=== PATIENT | female | born 1960 | race Caucasian/White ===

== ENCOUNTER 2017-05-12 21:31 | Inpatient (IN) | payer MEDICARE ==
[~2017-05-12] VITALS: Ht 165.1 cm; Wt 73.5 kg
[~2017-05-12 21:31] MED LIST: BENZONATATE200 MG PO; BREO ELLIPTA1 POW IH; CELEXA20 MG PO; LISINOPRIL10 MG PO; METFORMIN500 MG PO; POTASSIUM GLUC500 MG PO; PREDNISONE20 MG PO; RANITIDINE HCL150 MG PO; SPIRIVA RE2.5 MCG/Ac IH; SYMBICORT 10.10.2 M1 IH; ZITHROMAX TRI-500 M1 PO
[2017-05-12 21:35] VITALS: BP 194/83
[2017-05-12 22:03] LABS: HEMOGLOBIN 14.7 g/dL (12.2-16.2); LYMPH % 14.3 % (10-50.0)
[2017-05-12 22:25] LABS: BUN 11 mg/dL (7-18)
[2017-05-12 22:28] LABS: GFR (ESTIMATED) 64 ML/MIN (59-)
--- NOTE | 2017-05-12 22:43 | Emergency Room Report ---
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 Y Clinical Suspician of Infection? Y Mental Status: 1 - Regular (Normal Baseline) Sepsis Risk:Severe Sepsis Risk Have you (or family members/close friends) recently traveled outside the [place]? N If Yes, where/when: Have you had exposure to infectious disease within the past month? TB? Other? 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 over the last 2 days - pt with hx of copd and has hx of tob use - no hemoptysis or chest pain Cardiac Chest Pain Chest pain indicative of cardiac No Timing/Duration this evening Severity moderate ALLERGIES Coded Allergies: aspirin (I-HIVES 07/25/16) Home Medications Active Scripts FLUTICASONE/VILANTEROL (Breo Ellipta 100-25 Mcg INH) 1 POW IH DAILY #30 POW Prov: 07/26/16 Tiotropium [place] (Spiriva Respimat) 2.5 MCG IH DAILY #1 EACH Prov: 07/26/16 Azithromycin (Zithromax Tri-Luc) 500 MG PO DAILY #3 TAB Prov: 07/26/16 Lisinopril 10 MG PO DAILY #30 TAB Prov: 07/26/16 Prednisone (Prednisone 20MG Tab) 20 MG PO BID #10 TAB Prov: 07/26/16 Benzonatate 200 MG PO TIDP PRN COUGH #30 SGL Prov: 07/26/16 Potassium Gluconate 500 MG PO BID #60 TAB Prov: 07/27/16 Reported Medications Metformin HCL (Metformin) 500 MG PO DAILY CITALOPRAM HYDROBROMIDE (Citalopram HBr) 20 MG PO DAILY Ranitidine Hcl (Ranitidine 150MG) 150 MG PO BID History Medical History General CAD? No Angina: No [place]: No Hypertension? No Hyperlipidemia? No CHF? No DVT? No PE? No COPD? Yes Asthma? No Anemia? No GERD? No Gastric ulcers? No GI Bleed? No Hernia? No Thyroid Problems? No Hypothyroidism? No CVA? No Seizures? No Diabetes? Yes Insulin Dependent: No Insulin Pump: No Home FSBS? No Renal Insuffiency? No End Stage Renal Disease? No UTI? No Stones? No GB Disease: Yes Nephritic Syndrome? No Asplenia? No Hepatitis? No Sickle Cell Disease? No Arthritis? No Migraines? No Cataracts? No Glaucoma? No MRSA? No HIV? No TB? No Anxiety? No Depression? No More? 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 Respiratory see HPI, cough, shortness of breath, wheezing Cardiovascular denies chest pain, denies palpitations, denies syncope Gastrointestinal denies abdominal pain, denies diarrhea, denies vomiting Genitourinary denies: dysuria, frequency, hesitancy, hematuria. Musculoskeletal denies back pain, denies joint pain, denies joint swelling, denies neck pain Skin denies rash Psychiatric/Neurological denies headache, denies seizure Physical Exam Vital Signs Vital Signs Date Time Temp Pulse Resp B/P Pulse O2 O2 Flow FiO2 Ox Delivery Rate 05/12 2245 101.7 96 25 168/75 97 3 05/12 2243 28 92 05/12 2135 101.7 109 28 194/83 92 - WBC >12,000 or <4,000 or 10% bands? 2 or more SIRS Criteria Met? B/P:168/75 MAP:120 Creatinine >2.0? UA output<0.5ml/kg/hr for 2 hrs? Platelet count >100,000? Lactate >2.0mmol/1? INR >1.2 or PTT > than 60 sec? Evidence of Organ Dysfunction? Provider documented clinical suspician of infection? Y Sepsis Criteria Count: 2 Sepsis Risk: Severe Sepsis Risk General Appearance no apparent distress Eye Exam - bilateral eye PERRL, bilateral eye EOMI Ear, Nose, Throat normal ENT inspection Neck supple Respiratory Status No: respiratory distress. Lung Sounds bilateral: rhonchi, wheezing. 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 No Results/Orders Laboratory Tests 05/12/172229: Influenza Type A Ag NOT DETECTED, Influenza Type B Ag NOT DETECTED 05/12/172149: Lactic Acid 1.9 05/12/172149: Sodium 141, Potassium 2.8 *L, Chloride 98, Carbon Dioxide 34 H, BUN 11, Creatinine 0.9, Estimated Creat Clear 72, Estimated GFR (MDRD) 64, Glucose 108 H, Calcium 8.7, Total Bilirubin 0.6, AST 13 L, ALT 22, Alkaline Phosphatase 134 H, Creatine Kinase 25 L, CK-MB (CK-2) Rel Index 2.0, CK and CKMB Interp < 0.5, Troponin I < 0.02, Total Protein 7.8, Albumin 3.3 L, Globulin 4.5 H, Albumin/ Globulin Ratio 0.7 L, WBC 13.9 H, RBC 5.12, Hgb 14.7, Hct 45.1, MCV 88.1, RDW 14.2, Plt Count 464 H, MPV 7.7, Gran % 76.6, Gran # 10.7 H, Lymphocytes % 14.3 , Monocytes % 7.5, Eosinophils % 0.6, Basophils % 1.0, Lymphocytes # 2.0, Monocytes # 1.1 H, Eosinophils # 0.1, Basophils # 0.1, PUBS MCHC 32.5, MCH 28.7 Current Medication Orders Sig/Enrique Start time Last Medication Dose Route Stop Time Status Admin Sodium Chloride 100 ML .STK-MED ONE 05/12 2305 DC IV Ceftriaxone Sodium 0 .STK-MED ONE 05/12 2304 DC IV Albuterol/Ipratropium 0 .STK-MED ONE 05/12 2243 DC INH Acetaminophen 0 .STK-MED ONE 05/12 2223 DC PO Albuterol/Ipratropium 3 ML ONCE ONE 05/125 DC 05/12 INH 05/12 221 2246 Methylprednisolone 125 MG ONCE ONE 05/125 DC 05/12 Sodium Succinate IV 05/12 221 2223 Methylprednisolone 0 .STK-MED ONE 05/12 2212 DC Sodium Succinate .ROUTE Sodium Chloride 1,000 ML .STK-MED ONE 05/12 2206 DC IV Acetaminophen 1,000 MG ONCE ONE 05/12 2200 DC 05/12 PO 05/12 2201 2223 Sodium Chloride 1,000 ML .Q1H1M 05/12 220 DC 05/12 IV 05/12 2300 2224 Sodium Chloride 10 ML PRN PRN 05/12 2200 AC IV 05/13 215 Orders Procedure Date/time Status Decision to admit 05/12 225 Active RT REQUEST DUONEB 05/12 2210 Active URINALYSIS/COMPLETE 05/12 2210 Active ELECTROCARDIOGRAM REQUEST 05/12 2155 Active CHEST-PORTABLE 05/12 2155 Active CULTURE, BLOOD 05/12 2155 Active LACTIC ACID 05/12 2155 Complete INFLUENZA A&B ANTIGENS 05/12 2155 Complete CBC WITH AUTO DIFF 05/12 2155 Complete CARDIAC ENZYMES 05/12 2155 Complete CHEM 12 PROFILE 05/12 2155 Complete CM/EKG 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 ST/Twave chgs XRAY/CT/US XRAY/CT/US XRAY chest XR interpretation by reviewed by me Xray Results abnormal (copd) Departure Departure Time of Disposition 2250 Disposition Still a Patient Clinical Impression Primary Impression: COPD (chronic obstructive pulmonary disease) with acute bronchitis Secondary Impressions: Hypokalemia Condition STABLE Referrals Jacquelyn Lindsey MD discussed with dr lindsey ED Critical Care Critical Care No at 2303
--- NOTE | 2017-05-12 22:43 | Emergency Room Report ---
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 Y Clinical Suspician of Infection? Y Mental Status: 1 - Regular (Normal Baseline) Sepsis Risk:Severe Sepsis Risk Have you (or family members/close friends) recently traveled outside the [place]? N If Yes, where/when: Have you had exposure to infectious disease within the past month? TB? Other? 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 - pt with hx of copd and has hx of tob use - no hemoptysis or chest pain Cardiac Chest Pain Chest pain indicative of cardiac No Timing/Duration this evening Severity moderate ALLERGIES Coded Allergies: aspirin (I-HIVES 07/25/16) Home Medications Active Scripts FLUTICASONE/VILANTEROL (Breo Ellipta 100-25 Mcg INH) 1 POW IH DAILY #30 POW Prov: 07/26/16 Tiotropium [place] (Spiriva Respimat) 2.5 MCG IH DAILY #1 EACH Prov: 07/26/16 Azithromycin (Zithromax Tri-Luc) 500 MG PO DAILY #3 TAB Prov: 07/26/16 Lisinopril 10 MG PO DAILY #30 TAB Prov: 07/26/16 Prednisone (Prednisone 20MG Tab) 20 MG PO BID #10 TAB Prov: 07/26/16 Benzonatate 200 MG PO TIDP PRN COUGH #30 SGL Prov: 07/26/16 Potassium Gluconate 500 MG PO BID #60 TAB Prov: 07/27/16 Reported Medications Metformin HCL (Metformin) 500 MG PO DAILY CITALOPRAM HYDROBROMIDE (Citalopram HBr) 20 MG PO DAILY Ranitidine Hcl (Ranitidine 150MG) 150 MG PO BID History Medical History General CAD? No Angina: No [place]: No Hypertension? No Hyperlipidemia? No CHF? No DVT? No PE? No COPD? Yes Asthma? No Anemia? No GERD? No Gastric ulcers? No GI Bleed? No Hernia? No Thyroid Problems? No Hypothyroidism? No CVA? No Seizures? No Diabetes? Yes Insulin Dependent: No Insulin Pump: No Home FSBS? No Renal Insuffiency? No End Stage Renal Disease? No UTI? No Stones? No GB Disease: Yes Nephritic Syndrome? No Asplenia? No Hepatitis? No Sickle Cell Disease? No Arthritis? No Migraines? No Cataracts? No Glaucoma? No MRSA? No HIV? No TB? No Anxiety? No Depression? No More? 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 Respiratory see HPI, cough, shortness of breath, wheezing Cardiovascular denies chest pain, denies palpitations, denies syncope Gastrointestinal denies abdominal pain, denies diarrhea, denies vomiting Genitourinary denies: dysuria, frequency, hesitancy, hematuria. Musculoskeletal denies back pain, denies joint pain, denies joint swelling, denies neck pain Skin denies rash Psychiatric/Neurological denies headache, denies seizure Physical Exam Vital Signs Vital Signs Date Time Temp Pulse Resp B/P Pulse O2 O2 Flow FiO2 Ox Delivery Rate 05/12 2245 101.7 96 25 168/75 97 3 05/12 2243 28 92 05/12 2135 101.7 109 28 194/83 92 - WBC >12,000 or <4,000 or 10% bands? 2 or more SIRS Criteria Met? B/P:168/75 MAP:120 Creatinine >2.0? UA output<0.5ml/kg/hr for 2 hrs? Platelet count >100,000? Lactate >2.0mmol/1? INR >1.2 or PTT > than 60 sec? Evidence of Organ Dysfunction? Provider documented clinical suspician of infection? Y Sepsis Criteria Count: 2 Sepsis Risk: Severe Sepsis Risk General Appearance no apparent distress Eye Exam - bilateral eye PERRL, bilateral eye EOMI Ear, Nose, Throat normal ENT inspection Neck supple Respiratory Status No: respiratory distress. Lung Sounds bilateral: rhonchi, wheezing. 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 No Results/Orders Laboratory Tests 05/12/172229: Influenza Type A Ag NOT DETECTED, Influenza Type B Ag NOT DETECTED 05/12/172149: Lactic Acid 1.9 05/12/172149: Sodium 141, Potassium 2.8 *L, Chloride 98, Carbon Dioxide 34 H, BUN 11, Creatinine 0.9, Estimated Creat Clear 72, Estimated GFR (MDRD) 64, Glucose 108 H, Calcium 8.7, Total Bilirubin 0.6, AST 13 L, ALT 22, Alkaline Phosphatase 134 H, Creatine Kinase 25 L, CK-MB (CK-2) Rel Index 2.0, CK and CKMB Interp < 0.5, Troponin I < 0.02, Total Protein 7.8, Albumin 3.3 L, Globulin 4.5 H, Albumin/ Globulin Ratio 0.7 L, WBC 13.9 H, RBC 5.12, Hgb 14.7, Hct 45.1, MCV 88.1, RDW 14.2, Plt Count 464 H, MPV 7.7, Gran % 76.6, Gran # 10.7 H, Lymphocytes % 14.3 , Monocytes % 7.5, Eosinophils % 0.6, Basophils % 1.0, Lymphocytes # 2.0, Monocytes # 1.1 H, Eosinophils # 0.1, Basophils # 0.1, PUBS MCHC 32.5, MCH 28.7 Current Medication Orders Sig/Enrique Start time Last Medication Dose Route Stop Time Status Admin Sodium Chloride 100 ML .STK-MED ONE 05/12 2305 DC IV Ceftriaxone Sodium 0 .STK-MED ONE 05/12 2304 DC IV Albuterol/Ipratropium 0 .STK-MED ONE 05/12 2243 DC INH Acetaminophen 0 .STK-MED ONE 05/12 2223 DC PO Albuterol/Ipratropium 3 ML ONCE ONE 05/125 DC 05/12 INH 05/12 221 2246 Methylprednisolone 125 MG ONCE ONE 05/125 DC 05/12 Sodium Succinate IV 05/12 221 2223 Methylprednisolone 0 .STK-MED ONE 05/12 2212 DC Sodium Succinate .ROUTE Sodium Chloride 1,000 ML .STK-MED ONE 05/12 2206 DC IV Acetaminophen 1,000 MG ONCE ONE 05/12 2200 DC 05/12 PO 05/12 2201 2223 Sodium Chloride 1,000 ML .Q1H1M 05/12 220 DC 05/12 IV 05/12 2300 2224 Sodium Chloride 10 ML PRN PRN 05/12 2200 AC IV 05/13 215 Orders Procedure Date/time Status Decision to admit 05/12 225 Active RT REQUEST DUONEB 05/12 2210 Active URINALYSIS/COMPLETE 05/12 2210 Active ELECTROCARDIOGRAM REQUEST 05/12 2155 Active CHEST-PORTABLE 05/12 2155 Active CULTURE, BLOOD 05/12 2155 Active LACTIC ACID 05/12 2155 Complete INFLUENZA A&B ANTIGENS 05/12 2155 Complete CBC WITH AUTO DIFF 05/12 2155 Complete CARDIAC ENZYMES 05/12 2155 Complete CHEM 12 PROFILE 05/12 2155 Complete 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 ST/Twave chgs XRAY/CT/US XRAY/CT/US XRAY chest XR interpretation by reviewed by me Xray Results abnormal (copd) Departure Departure Time of Disposition 2250 Disposition Still a Patient Clinical Impression Primary Impression: COPD (chronic obstructive pulmonary disease) with acute bronchitis Secondary Impressions: Hypokalemia Condition STABLE Referrals Jacquelyn Lindsey MD discussed with dr lindsey ED Critical Care Critical Care No at 2307
[2017-05-13] VITALS (8 sets, daily range): BP systolic 124–161; BP diastolic 61–89
[2017-05-13] MEDS ORDERED: DULERA1 AR1 IH (00:43)
[2017-05-13] MEDS ORDERED: SYMBICORT1 AE1 IH (00:44)
[2017-05-13] MEDS ORDERED: ADVAIR DISK28 PUFFS IN (00:44)
[2017-05-13 00:45] LABS: URINE BILIRUBIN - DIPSTICK NEGATIVE (NEG); URINE BLOOD NEGATIVE (NEG)
--- NOTE | 2017-05-13 05:29 | RADIOLOGY REPORT PS360 ---
CHEST-PORTABLE HISTORY: Shortness of air with cough, current smoker COUGH X 3 WEEKS WITH FEVER ORDERING PHYSICIAN: Jacquelyn Montaño MD PATIENT AGE: 57 years COMPARISON: 07/25/2016 FINDINGS: There is mild cardiomegaly without failure. There is coarsening of the bronchovascular markings with reticular nodular opacities bilaterally. No obvious effusions. No acute bony anomalies. IMPRESSION: Cardiomegaly. Coarsened bronchovascular markings with reticular nodular opacities which may be seen with acute interstitial pneumonitis or progressive interstitial lung disease. High-resolution CT suggested for further evaluation
[2017-05-13 06:47] LABS: HEMOGLOBIN 13.6 g/dL (12.2-16.2); LYMPH % 7.2 % (10-50.0)
--- NOTE | 2017-05-13 07:24 | PHARMACY CLINIC NOTE ---
Patient Demographics Patient Demographics Admission date: 05/13/17 Date: 05/13/17 Time: 07 Allergies Coded Allergies: aspirin (I-HIVES 07/25/16) HEIGHT- FT: 5 IN: 5.00 K.483 VTE General Information Labs: Laboratory Tests 05/13 05/12 0630 2150 Hematology Hgb (12.2 - 16.2 g/dL) 13.6 14.7 Hct (37.0 - 47.0 %) 41.5 45.1 Plt Count (142 - 424 K/mm3) 440 H 464 H Disclaimer The following section includes nursing documentation that has been pulled in for pharmacy review. Patient's VTE score: 4 Patient's VTE Risk: LOW RISK Clinical trial participant? No VTE prophylaxis [id number] VTE prophylaxis ordered? Yes Type of prophylaxis/treatment: SHAKIRA at 0724
[2017-05-13] MEDS ORDERED: METFORMIN 500M500 M1 PO ×2 (08:37→08:41)
--- NOTE | 2017-05-13 08:51 | HISTORY AND PHYSICAL REPORT ---
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 She was also having diarrhea and vomiting. She describes back and neck pain due to the cough. Her brother has also been sick with a cough. She received solu medrol, duoneb Tx and IV rocephin in the ER. She was then admitted for further evaluation and TX. This AM she states that her breathing is better but the cough is the same. Her neck and back are hurting from the cough. She did eat some breakfast which she states is the first she has had to eat in a few days. She has not had any vomiting or diarrhea since admission. She denies abdominal pain. Patient does not have a physician. She states she gets her meds/inhalers from friends. She travels back and forth to [place] to care for different family members. Past Medical History: Medical History: CAD? No Angina: No [place]: No Hypertension? No Hyperlipidemia? No CHF? No DVT? No PE? No COPD? Yes Asthma? No Anemia? No GERD? Yes Gastric ulcers? No GI Bleed? No Hernia? No Thyroid Problems? No Hypothyroidism? No CVA? No Seizures? No Diabetes? Yes Insulin Dependent: No Insulin Pump: No Home FSBS? No Renal Insuffiency? No UTI? No Stones? No GB Disease: Yes Nephritic Syndrome? No Asplenia? No Hepatitis? No Sickle Cell Disease? No Arthritis? No Migraines? No Cataracts? No Glaucoma? No MRSA? No HIV? No TB? No Anxiety? No Depression? No More? Yes Additional hx: IBS Tobacco use disorder Surgical history: Previous Surgery?Y MALORIE CHOLECYSTECTOMY Medications: Active Scripts FLUTICASONE/VILANTEROL (Breo Ellipta 100-25 Mcg INH) 1 POW IH DAILY #30 POW Prov: 07/26/16 Tiotropium [place] (Spiriva Respimat) 2.5 MCG IH DAILY #1 EACH Prov: 07/26/16 Discontinued Scripts Potassium Gluconate 500 MG PO BID #60 TAB Prov: 07/27/16 DC: 05/13/17 0841 Reported Medications Metformin HCl (Metformin) 500 MG PO BID MOMETASONE/FORMOTEROL (Dulera 200 Mcg/5 Mcg Inhaler) 2 PUFFS IH BID FLUTICASONE/SALMETEROL (Advair 500-50 Diskus) 1 PUFF IN BID BUDESONIDE/FORMOTEROL FUMARATE (Symbicort 160-4.5 Mcg Inhaler) 1 PUFF IH BID Allergies: Coded Allergies: aspirin (I-HIVES 07/25/16) Family History: Family history: Postive for: CAD, DM, HTN, cancer. Social History: Smoking Hx Tobacco: Yes Smoker: Current Every Day Smoker Type: Cigarettes Packs/day: < 1 Pack Are you exposed to second hand Yes Alcohol: Alcohol: No Hx of Drug Use: Drug Use? No Review of Systems: Cardiovascular No: chest pain, edema, palpitations. Respiratory Positive for: shortness of air, non-productive, pneumonia, wheezing. GI Positive for: GERD, diarrhea, nausea, vomitting. No: abdominal pain, hematemeis , hematochezia, melena. (female) No: hematuria. Neurological Positive for: light headed. No: dizziness, headache, seizure, syncope. Musculoskeletal Positive for: joint pain. No: extremity pain. Physical Exam: Vital signs: 1ST Vital Signs Result Date Time Pulse Ox 92 05/12 2135 B/P 194/83 05/12 2135 Temp 101.7 05/12 2135 Pulse 109 05/12 2135 Resp 28 05/12 2135 O2 Flow Rate 3 05/12 2245 O2 Delivery OXYGEN 05/12 2321 Exam: General appearance: alert, no acute distress, sitting on bedside and has completed her breakfast Eyes: anicteric, pupils reactive to light Neck: no carotid bruit, carotid bruit (absent bilaterally), lymphadenopathy ( absent), thyroid (normal) Cardiovascular: regular rate & rhythm, no peripheral edema Respiratory: chest non-tender, few bibasilar crackles with wheezing in right base; crackles anteriorly in right upper lobe ABD: non-distended, soft, tender in epigastrium and left upper quad Extremities: no peripheral edema Musculoskeletal: kyphosis present Neuro: alert, oriented, speech clear Lab data: Labs: Laboratory Tests 05/13/17 0630: Sodium 143, Potassium 3.4 L, Chloride 103, Carbon Dioxide 31, BUN 10, Creatinine 0.7, Estimated Creat Clear 100, Estimated GFR (MDRD) 86, Glucose 213 H, Calcium 8.2 L, WBC 13.4 H, RBC 4.70, Hgb 13.6, Hct 41.5, MCV 88.3, RDW 14.2 , Plt Count 440 H, MPV 7.6, Gran % 89.1 H, Gran # 12.0 H, Lymphocytes % 7.2 L, Monocytes % 3.4, Eosinophils % 0.1, Basophils % 0.2, Lymphocytes # 1.0, Monocytes # 0.5, Eosinophils # 0.0, Basophils # 0.0, PUBS MCHC 32.9, MCH 29.0 05/13/17 0609: POC Glucose 219 H 05/12/17 2350: Urine Color YELLOW, Urine Appearance CLEAR, Urine pH 6.0, Ur Specific [place] 1.020, Urine Protein NEGATIVE, Urine Ketones NEGATIVE, Urine Blood NEGATIVE, Urine Nitrate NEGATIVE, Urine Bilirubin NEGATIVE, Urine Urobilinogen 0.2, Ur Leukocyte Esterase TRACE H, Urine RBC OCC, Urine WBC 3-5, Ur Squamous Epith Cells 5-10, Urine Glucose NEGATIVE 05/12/170: Influenza Type A Ag NOT DETECTED, Influenza Type B Ag NOT DETECTED 05/12/172149: Lactic Acid 1.9 05/12/172149: Sodium 141, Potassium 2.8 *L, Chloride 98, Carbon Dioxide 34 H, BUN 11, Creatinine 0.9, Estimated Creat Clear 72, Estimated GFR (MDRD) 64, Glucose 108 H, Calcium 8.7, Total Bilirubin 0.6, AST 13 L, ALT 22, Alkaline Phosphatase 134 H, Creatine Kinase 25 L, CK-MB (CK-2) Rel Index 2.0, CK and CKMB Interp < 0.5, Troponin I < 0.02, Total Protein 7.8, Albumin 3.3 L, Globulin 4.5 H, Albumin/ Globulin Ratio 0.7 L, WBC 13.9 H, RBC 5.12, Hgb 14.7, Hct 45.1, MCV 88.1, RDW 14.2, Plt Count 464 H, MPV 7.7, Gran % 76.6, Gran # 10.7 H, Lymphocytes % 14.3 , Monocytes % 7.5, Eosinophils % 0.6, Basophils % 1.0, Lymphocytes # 2.0, Monocytes # 1.1 H, Eosinophils # 0.1, Basophils # 0.1, PUBS MCHC 32.5, MCH 28.7 Microbiology 05/12 2150 BLOOD: Anaerobic Blood Culture - RECD 05/12 2150 BLOOD: Aerobic Blood Culture - RECD 05/12 2150 BLOOD: Anaerobic Blood Culture - RECD 05/12 2150 BLOOD: Aerobic Blood Culture - RECD Radiology results: Results: 05/12/17 CXR IMPRESSION: Cardiomegaly. Coarsened bronchovascular markings with reticular nodular opacities which may be seen with acute interstitial pneumonitis or progressive interstitial lung disease. High-resolution CT suggested for further evaluation Diagnosis(es): 1. Hypokalemia Status: Acute 2. COPD exacerbation Status: Acute 3. Type 2 diabetes mellitus Status: Chronic 4. Depression Status: Chronic 5. COPD (chronic obstructive pulmonary disease) with acute bronchitis Plan: ABX, Duoneb, IVF, and Chest CT at 0850
[2017-05-13 10:43] LABS: NEUTROPHILS 87 % (42-76)
--- NOTE | 2017-05-13 13:48 | RADIOLOGY REPORT PS360 ---
CT CHEST W/O CONTRAST HISTORY: HIGH RESOLUTION FOR INTERSTITIAL PNEUMONITS,OR PROGRESSING ORDERING PHYSICIAN: Jacquelyn Montaño MD PATIENT AGE: 57 years TECHNIQUE: Helical acquisition obtained without contrast.. Axial, sagittal, and coronal reformatted images are generated and reviewed. High-resolution axial images are also performed COMPARISON: Chest radiograph of 05/12/2017 FINDINGS: There are scattered small lymph nodes within the mediastinum measuring up to 1.8 x 1.5 cm. Calcified nodes are present in the subcarinal area. Small bilateral hilar nodes are present. Heart size is normal. No obvious pericardial effusion. There is a somewhat diffuse reticular pattern with tiny nodular opacities in both upper lobes. There is a 9 x 7 mm lobulated nodule in the superior segment of the right lower lobe medially. This does appear to contain some central calcification probably related to granuloma. Calcification not well delineated on the axial images but is noted on the reformatted coronal and sagittal images. There is mild diffuse bronchial thickening. No effusions are evident. No lobar consolidation or collapse. Upper abdominal images are unremarkable. No evidence of aortic aneurysm IMPRESSION: 1. There is a mild diffuse reticular nodular pattern in the upper lobes probably related to inflammatory/infectious. Bilateral pneumonia could cause this appearance. 2. Old granulomatous disease.
--- NOTE | 2017-05-13 14:14 | RADIOLOGY REPORT PS360 ---
THORACIC SPINE AP LAT-2VIEW CLINICAL INDICATION: Thoracic pain Pain ORDERING PHYSICIAN: Jacquelyn Montaño MD PATIENT AGE: 57 years COMPARISON: None FINDINGS: Normal alignment. No fracture or dislocation. There is mild multilevel degenerative disc disease involving the mid thoracic spine with decrease in the disc space and osteophyte formation. There is slight decrease in height anteriorly involving T6, T7, and T8 which is likely developmental. No destructive process. 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
--- NOTE | 2017-05-13 14:15 | RADIOLOGY REPORT PS360 ---
EXAM: LUMBAR SPINE-2 TO 3 VIEWS HISTORY: Pain COMPARISON: None FINDINGS: Normal alignment. No fracture or dislocation. No lytic or blastic change. Small osteophytes are present superiorly at L5 L4 and L3. Mild facet arthritic changes are present at L5-S1. IMPRESSION: Mild spondylosis of the lumbar spine with no acute finding
[2017-05-14] VITALS (8 sets, daily range): BP systolic 103–164; BP diastolic 77–89
[2017-05-14 06:59] LABS: HEMOGLOBIN 13.2 g/dL (12.2-16.2); LYMPH # 1.1 K/mm3 (0.7-4.5); LYMPH % 8.3 % (10-50.0)
--- NOTE | 2017-05-14 08:00 | ACUTE CARE PROGRESS NOTE (QUA) ---
Progress Notes Subjective Date 05/14/17 Time 0750 Note States she coughs and sleeps; Is more SOB with more cough this AM. No sputum production. Asks for HH inhalers + nebs. Is eating without problems; no further vomiting or diarrhea; has been up to the bathroom. No sputum collection as yet. continues to complain of neck pain. Objective Findings Laboratory Tests 05/14/17 0630: Sodium 143, Potassium 4.0, Chloride 105, Carbon Dioxide 31, BUN 17, Creatinine 0.7, Estimated Creat Clear 100, Estimated GFR (MDRD) 86, Glucose 179 H, Calcium 8.6, WBC 13.7 H, RBC 4.42, Hgb 13.2, Hct 39.6, MCV 89.5, RDW 14.3, Plt Count 479 H, MPV 7.8, Gran % 88.2 H, Gran # 12.1 H, Lymphocytes % 8.3 L, Monocytes % 3.1, Eosinophils % 0.2, Basophils % 0.2, Lymphocytes # 1.1, Monocytes # 0.4, Eosinophils # 0.0, Basophils # 0.0, PUBS MCHC 33.5, MCH 29.9 05/14/17 0602: POC Glucose 149 H 05/13/17 1957: POC Glucose 155 H 05/13/17 1612: POC Glucose 133 H 05/13/17 1115: POC Glucose 148 H Vital Signs Date Time Temp Pulse Resp B/P Pulse O2 O2 Flow FiO2 Ox Delivery Rate 05/14 0635 2 05/14 0552 2 05/14 0540 2 05/14 0540 98 OXYGEN 2 05/14 0453 2 05/14 0358 2 05/14 0358 97.7 68 24 137/79 98 OXYGEN 2 05/14 0253 2 05/14 0202 2 05/14 0057 2 05/13 2351 2 05/13 2351 98.5 74 20 152/87 99 OXYGEN 2 05/13 2331 2 05/13 2331 86 ROOM AIR 05/13 2308 2 05/13 2147 2 05/13 2105 2 05/13 2020 98.4 76 22 138/61 96 2 05/13 1950 2 05/13 1950 98.4 76 22 138/61 96 OXYGEN 2 05/13 1801 2 05/13 1801 95 OXYGEN 2 05/13 1748 2 05/13 1630 98.4 80 20 124/78 95 OXYGEN 05/13 1506 2 05/13 1300 2 05/13 1129 2 05/13 0914 2 05/13 0832 98.1 75 18 132/77 9 2 Current Medications Ibuprofen 0 .STK-MED ONE PO (DCr) Ibuprofen 800 MG Q8HP PRN PO Ibuprofen 0 .STK-MED ONE PO (DCr) Azithromycin 500 MG 2100 IV Sodium Chloride 250 ML Insulin Human [rDNA origin] 0 .STK-MED ONE SC (DC) Acetaminophen 0 .STK-MED ONE PO (DC) Potassium Chloride 20 MEQ BID PO Ceftriaxone Sodium 1 GM DAILY IV Sodium Chloride 50 ML Sodium Chloride 10 ML PRN PRN IV Diagnostic Test (Pha) 1 EACH W/MEALS&HS FS Insulin Human [rDNA origin] SEE ADMIN CRITERIA FOR LOW INTENSITY SS W/MEALS&HS SC Methylprednisolone Sodium Succinate 60 MG Q8 IV Albuterol 2.5 MG Q6H6 INH Acetaminophen 650 MG Q4HP PRN PO Nicotine 21 MG DAILYP PRN TD Ondansetron HCl 4 MG Q6HP PRN IV Sodium Chloride 1,000 ML .[id number] IV Sodium Chloride 10 ML PRN PRN IV (DC) 05/13 1500 05/13 2300 05/14 0700 Intake Total 360 745 Output Total Balance 360 745 Intake, IV 745 Intake, Oral 360 Last VS-Temp:97.7 B/P:137/79 Pulse:68 Resp:24 SaO2:98 OXYGEN Last weight lbs:162 oz:0 K.483 Method:Floor Scales 05/13/17 CT of lungs IMPRESSION: 1. There is a mild diffuse reticular nodular pattern in the upper lobes probably related to inflammatory/infectious. Bilateral pneumonia could cause this appearance. 2. Old granulomatous disease. 05/13/17 X-ray of lumbar spine IMPRESSION: Mild spondylosis of the lumbar spine with no acute finding 05/13/17 X-ray of thoracic spine IMPRESSION: Spondylosis of the thoracic spine with mild degenerative disc disease and osteophytes of the mid thoracic spine Exam General appearance: alert, no acute distress, awakened for exam Cardiovascular: regular rate & rhythm Respiratory: bilateral wheezing throughout ABD: soft, no tenderness, no guarding, bowel sounds present Extremities: no peripheral edema, SHAKIRA hose on Assessment/Plan Problem List 1. Hypokalemia Status: Acute 2. COPD exacerbation Status: Acute 3. Type 2 diabetes mellitus Status: Chronic 4. Depression Status: Chronic 5. COPD (chronic obstructive pulmonary disease) with acute bronchitis 6. Pneumonia Patient condition no improvement Plan: extra dose of steriod this AM; consider change of ABX; add prn duonebs and cough med. This inpt stay is expected to cross 2 MNs from start of care Yes at 4109
[2017-05-15 04:11] VITALS: BP 163/84
[2017-05-15 07:59] VITALS: BP 154/75
[2017-05-15 08:00] VITALS: BP 154/75
--- NOTE | 2017-05-15 08:20 | ACUTE CARE PROGRESS NOTE (QUA) ---
See Addendum Progress Notes Subjective Date 05/15/17 Time 0755 Note Pt resting quietly in chair, has already had breakfast and tolerated well. She continues with non-productive cough which causes abdominal and back pain. Otherwise, she is "feeling almost good enough to go home". She reports minimal relief with prn cough meds. She is up and about ad amarjit, voiding without difficulty, BM x 1 overnight. Objective Findings Last VS-Temp:97.8 B/P:154/75 Pulse:77 Resp:18 SaO2:95 OXYGEN Last weight lbs:162 oz:0 K.483 Method:Floor Scales 05/12/17 Blood cultures: Preliminary: no growth. Exam General appearance: alert, awake, no acute distress Cardiovascular: regular rate & rhythm, normal peripheral pulses Respiratory: wheezes throughout, frequent dry cough ABD: non-distended, no rebound, soft, no tenderness, no guarding, no organomegaly, no palpable mass, bowel sounds present Extremities: moves all, no peripheral edema, warm, no calf tenderness, bilateral SHAKIRA hose in place Neuro: alert, oriented, speech clear, no focal deficit Reviewed: medications, vital signs, lab results, radiology report, nursing notes Assessment/Plan Problem List 1. Hypokalemia Status: Acute 2. COPD exacerbation Status: Acute 3. Type 2 diabetes mellitus Status: Chronic 4. Depression Status: Chronic 5. COPD (chronic obstructive pulmonary disease) with acute bronchitis 6. Pneumonia Patient condition Stable Plan: further per Dr. Montaño This inpt stay is expected to cross 2 MNs from start of care Yes at 0820 at 0913
[2017-05-15 11:41] VITALS: BP 169/99
[2017-05-15 15:46] VITALS: BP 118/88
[2017-05-15] MEDS ORDERED: ADVAIR DISK28 PUFFS IN (17:48)
[2017-05-15] MEDS ORDERED: METFORMIN 500M500 M1 PO (17:48)
[2017-05-15] MEDS ORDERED: SPIRIVA RE2.5 MCG/Ac IH (17:50)
[2017-05-15] MEDS ORDERED: HYCODAN 5MG. TAB5 MG PO (17:51)
[2017-05-15] MEDS ORDERED: MUCINEX ER600 MG PO (17:52)
[2017-05-15] MEDS ORDERED: IBUPROFEN400 MG PO (17:53)
[2017-05-15] MEDS ORDERED: PREDNISONE 10MG10 MG PO (17:54)
[2017-05-15] MEDS ORDERED: CEFDINIR300 M1 PO (17:54)
--- NOTE | 2017-05-15 17:57 | ACUTE CARE PROGRESS NOTE (QUA) ---
Progress Notes Subjective Date 05/15/17 Time 1755 Note Would like to be discharged this evening due to in family. Objective Findings Last VS-Temp:98.2 B/P:118/88 Pulse:89 Resp:18 SaO2:96 ROOM AIR Last weight lbs:162 oz:0 K.483 Method:Floor Scales Exam General appearance: no acute distress Respiratory: no respiratory distress (improved) Skin: dry, intact Assessment/Plan Problem List 1. Hypokalemia Status: Acute 2. COPD exacerbation Status: Acute 3. Type 2 diabetes mellitus Status: Chronic 4. Depression Status: Chronic 5. COPD (chronic obstructive pulmonary disease) with acute bronchitis 6. Pneumonia Plan: initiate discharge plan This inpt stay is expected to cross 2 MNs from start of care Yes
[2017-05-15 19:21] VITALS: BP 118/88
--- NOTE | 2017-05-16 08:23 | DISCHARGE SUMMARY STANDARD ---
Discharge Summary (FCA2) Date of admission: 05/13/17 Date of discharge: 05/15/17 Problem List: 1. Hypokalemia 2. COPD exacerbation 3. Type 2 diabetes mellitus 4. Depression 5. COPD (chronic obstructive pulmonary disease) with acute bronchitis 6. 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 She was also having diarrhea and vomiting. She described back and neck pain due to the cough. Her brother was noted to also be sick with a cough. She received solu medrol, duoneb Tx and IV rocephin in the ER. She was then admitted for further evaluation and TX. Patient does not have a physician. She stated that she gets her meds/inhalers from friends. She has been traveling back and forth to [place] to care for different family members. Exam on admission: ST Vital Signs Result Date Time Pulse Ox 92 05/12 2135 B/P 194/83 05/12 2135 Temp 101.7 05/12 2135 Pulse 109 05/12 2135 Resp 28 05/12 2135 O2 Flow Rate 3 05/12 2245 O2 Delivery OXYGEN 05/12 2321 Exam: General appearance: alert, no acute distress, sitting on bedside and has completed her breakfast Eyes: anicteric, pupils reactive to light Neck: no carotid bruit, carotid bruit (absent bilaterally), lymphadenopathy ( absent), thyroid (normal) Cardiovascular: regular rate & rhythm, no peripheral edema Respiratory: chest non-tender, few bibasilar crackles with wheezing in right base; crackles anteriorly in right upper lobe ABD: non-distended, soft, tender in epigastrium and left upper quad Extremities: no peripheral edema Musculoskeletal: kyphosis present Neuro: alert, oriented, speech clear Hospital Course: Patient was started on ABX, Duonebs and steroids. 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 The SOB and wheezing were slow to improve. She had no further vomiting or diarrhea. She began to eat better. Her neck and back were hurting from the cough. Imaging showed no acute changes. She was able to ambulate in the room. On 05/15/17 she requested to be discharged due to a in the family. She was feeling better. Respiratory status was stable and she was discharged. Laboratory data this visit: 05/13/17 0630: Sodium 143, Potassium 3.4 L, Chloride 103, Carbon Dioxide 31, BUN 10, Creatinine 0.7, Estimated Creat Clear 100, Estimated GFR (MDRD) 86, Glucose 213 H, Calcium 8.2 L, WBC 13.4 H, RBC 4.70, Hgb 13.6, Hct 41.5, MCV 88.3, RDW 14.2 , Plt Count 440 H, MPV 7.6, Gran % 89.1 H, Gran # 12.0 H, Lymphocytes % 7.2 L, Monocytes % 3.4, Eosinophils % 0.1, Basophils % 0.2, Lymphocytes # 1.0, Monocytes # 0.5, Eosinophils # 0.0, Basophils # 0.0, PUBS MCHC 32.9, MCH 29.0 05/13/17 0609: POC Glucose 219 H 05/12/17 2350:05/14/17 0630: Sodium 143, Potassium 4.0, Chloride 105, Carbon Dioxide 31, BUN 17, Creatinine 0.7, Estimated Creat Clear 100, Estimated GFR (MDRD) 86, Glucose 179 H, Calcium 8.6, WBC 13.7 H, RBC 4.42, Hgb 13.2, Hct 39.6, MCV 89.5, RDW 14.3, Plt Count 479 H, MPV 7.8, Gran % 88.2 H, Gran # 12.1 H, Lymphocytes % 8.3 L, Monocytes % 3.1, Eosinophils % 0.2, Basophils % 0.2, Lymphocytes # 1.1, Monocytes # 0.4, Eosinophils # 0.0, Basophils # 0.0, PUBS MCHC 33.5, MCH 29.9 05/14/17 0602: POC Glucose 149 H 05/13/17 1957: POC Glucose 155 H 05/13/17 1612: POC Glucose 133 H 05/13/17 1115: POC Glucose 148 H Vital Signs Urine Color YELLOW, Urine Appearance CLEAR, Urine pH 6.0, Ur Specific [place] 1.020, Urine Protein NEGATIVE, Urine Ketones NEGATIVE, Urine Blood NEGATIVE, Urine Nitrate NEGATIVE, Urine Bilirubin NEGATIVE, Urine Urobilinogen 0.2, Ur Leukocyte Esterase TRACE H, Urine RBC OCC, Urine WBC 3-5, Ur Squamous Epith Cells 5-10, Urine Glucose NEGATIVE 05/12/172229: Influenza Type A Ag NOT DETECTED, Influenza Type B Ag NOT DETECTED 05/12/172149: Lactic Acid 1.9 05/12/172149: Sodium 141, Potassium 2.8 *L, Chloride 98, Carbon Dioxide 34 H, BUN 11, Creatinine 0.9, Estimated Creat Clear 72, Estimated GFR (MDRD) 64, Glucose 108 H, Calcium 8.7, Total Bilirubin 0.6, AST 13 L, ALT 22, Alkaline Phosphatase 134 H, Creatine Kinase 25 L, CK-MB (CK-2) Rel Index 2.0, CK and CKMB Interp < 0.5, Troponin I < 0.02, Total Protein 7.8, Albumin 3.3 L, Globulin 4.5 H, Albumin/ Globulin Ratio 0.7 L, WBC 13.9 H, RBC 5.12, Hgb 14.7, Hct 45.1, MCV 88.1, RDW 14.2, Plt Count 464 H, MPV 7.7, Gran % 76.6, Gran # 10.7 H, Lymphocytes % 14.3 , Monocytes % 7.5, Eosinophils % 0.6, Basophils % 1.0, Lymphocytes # 2.0, Monocytes # 1.1 H, Eosinophils # 0.1, Basophils # 0.1, PUBS MCHC 32.5, MCH 28.7 Imagin05/12/17 CXR IMPRESSION: Cardiomegaly. Coarsened bronchovascular markings with reticular nodular opacities which may be seen with acute interstitial pneumonitis or progressive interstitial lung disease. High-resolution CT suggested for further evaluation 05/13/17 CT of lungs IMPRESSION: 1. There is a mild diffuse reticular nodular pattern in the upper lobes probably related to inflammatory/infectious. Bilateral pneumonia could cause this appearance. 2. Old granulomatous disease. 05/13/17 X-ray of lumbar spine IMPRESSION: Mild spondylosis of the lumbar spine with no acute finding 05/13/17 X-ray of thoracic spine IMPRESSION: Spondylosis of the thoracic spine with mild degenerative disc disease and osteophytes of the mid thoracic spine Discharge medications: Stop taking the following medications: FLUTICASONE/VILANTEROL (Breo Ellipta 100-25 Mcg INH) 1 EACH BLST.W.DEV INHALATION DAILY Qty = 30 MOMETASONE/FORMOTEROL (Dulera 200 Mcg/5 Mcg Inhaler) 13 GM HFA.AER.AD INHALATION TWICE A DAY BUDESONIDE/FORMOTEROL FUMARATE (Symbicort 160-4.5 Mcg Inhaler) 10.2 GM HFA.AER.AD INHALATION TWICE A DAY Continue taking these medications: Metformin HCl (Metformin) 500 MG TABLET 500 MILLIGRAM ORAL TWICE A DAY Qty = 60 Instructions: GETS FROM [facility] Comments: DOES NOT HAVE ACTIVE PRESCRIPTIONS This prescription has been renewed FLUTICASONE/SALMETEROL (Advair 500-50 Diskus) 1 EACH BLST.W.DEV 1 PUFF IN VITRO TWICE A DAY Qty = 1 Instructions: GETS FROM [facility] Comments: DOES NOT HAVE ACTIVE PRESCRIPTIONS FOR ANY MEDS This prescription has been renewed Tiotropium [place] (Spiriva Respimat) 4 GM MIST.INHAL 2.5 MICROGRAM INHALATION DAILY Qty = 1 Comments: GETS FROM [facility], DOES NOT HAVE ACTIVE PRESCRIPTIONS This prescription has been renewed Start taking the following new medications: HYDROCODONE BIT/HOMATROP ME-BR (Tussigon 5-1.5 MG Tablet) 5 MG/1.5 MG TAB 5 MILLIGRAM ORAL EVERY 4 HOURS NEEDED as needed for COUGH Qty = 15 No Refills Guaifenesin (Mucinex) 600 MG TAB.ER.12H 1,200 MILLIGRAM ORAL TWICE A DAY Qty = 60 Refills = 2 IBUPROFEN MICRONIZED (IBUPROFEN 400MG) 400 MG TABLET 800 MILLIGRAM ORAL EVERY 8 HOURS NEEDED as needed for MODERATE TO SEVERE PAIN Qty = 30 Refills = 1 Cefdinir (Cefdinir) 300 MG CAPSULE 300 MILLIGRAM ORAL TWICE A DAY Qty = 14 No Refills Prednisone (Prednisone 10MG) 10 MG TABLET 10 MILLIGRAM ORAL DAILY Qty = 5 Refills = 1 Disposition: Patient was discharged to home in stable and satisfactory condition Follow up: [address] Montaño Activity: Limited activity Diet: Continue same diet Discharge to: HOME Agency needed? N To continue with meds as listed on reconciliation sheet at 0823
== END 2017-05-15 19:05 | disposition home or self-care (01) | DRG 194 ==
LOC: ER 21:31 → 2ND 23:13 → ER 23:13 → 2ND 05-13 00:07
PROVIDERS: Emergency Medicine; Family Medicine
DX: J18.9 Pneumonia, unspecified organism (principal); J44.1 Chronic obstructive pulmonary disease with (acute) exacerbation; J44.0 Chronic obstructive pulmonary disease with (acute) lower respiratory infection; J20.9 Acute bronchitis, unspecified; Z72.0 Tobacco use; E11.9 Type 2 diabetes mellitus without complications; E87.6 Hypokalemia
CPT/HCPCS: J0456